=== PATIENT | male | born 1975 | race Caucasian/White ===

== ENCOUNTER 2024-09-16 00:34 | Day surgery (SDC) | payer BC, SELFPAY ==
[2024-09-10 13:40] VITALS: BMI 31.7
[2024-09-16 07:43] VITALS: BP 131/72; PULSE 78; RESP 16; TEMP 36.1; O2SAT 100; BMI 30.8
--- NOTE | 2024-09-16 08:12 | WPDANESEPPF ---
Anes - Initial Pre Proc Eval Procedure: Operation Date: 09/16/24 09:00 Proposed Procedures p Screening Colonoscopy - Cy Gupta MD Date/Time: 09/16/24 08:12 Surgeon: Cy Gupta MD Pre Op Diagnosis: Screening Patient Data Age: 49 Gender: M Height: 1.75 m Weight: 94.7 kg Last Vital Signs Temp 97 F L 09/16/24 07:43 Pulse 78 09/16/24 07:43 Resp 16 09/16/24 07:43 BP 131/72 09/16/24 07:43 Pulse Ox 100 09/16/24 07:43 O2 Del Method Room Air 09/16/24 07:43 Home Medications ?Medication ?Instructions ?Recorded ?Confirmed ?Type rosuvastatin 20 mg tablet 20 mg PO DAILY 09/10/24 09/16/24 History Patient hx anesthesia problems: none Family hx anesthesia problems: none Results Review: All pre-operative results and documents have been reviewed as part of the pre-operative evaluation. [facility] Social History Social History Smoking status: Never smoker Drinks per week: 2 Substance use type: does not use Living arrangements: with family Spiritual care concerns: No Anes - Eval Final PreProcedure Day of Procedure 09/16/24 08:12 Patient weight: obese Lungs: normal air movement Airway: Mallampati scale class II Neurological: alert and oriented Last oral intake: >/= 8 hours ASA classification: II Emergent: no Anesthetic plan: proceed Anesthesia type and monitoring: general GIVS and standard monitoring Results Review: All pre-operative results and documents have been reviewed as part of the pre-operative evaluation. Hyperlipidemia, EBONIE on CPAP. Informed Consent: The patient's anesthetic plan and its attendant risks and benefits were discussed with the patient/family/POA. Questions were solicited and answers provided to the satisfaction of the patient/family/POA.
[2024-09-16] MEDS: LACTATED RINGERS 1,000 ML 150 ML IV CONT (09:41)
--- NOTE | 2024-09-16 09:57 | PM.IMHP ---
H&P: HPI History of Present Illness Date/Time: 09/16/24 09:57 Chief Complaint: Screening colonoscopy Narrative: This is the patient's first colonoscopy. There are no GI symptoms and there is no family history of colorectal cancer. Review of Systems Review of Systems: All systems reviewed & are unremarkable except as noted in HPI and below [facility] Social History Social History Smoking status: Never smoker Drinks per week: 2 Substance use type: does not use Living arrangements: with family Spiritual care concerns: No Meds Home Medications and Allergies Home Medications ?Medication ?Instructions ?Recorded ?Confirmed ?Type rosuvastatin 20 mg tablet 20 mg PO DAILY 09/10/24 09/16/24 History Vital Signs Vital Signs - 24 hr 09/16/24 07:43 Temperature 97 F L Pulse Rate 78 Respiratory Rate 16 Blood Pressure 131/72 Pulse Oximetry 100 Oxygen Delivery Room Air Exam Const: General: cooperative and healthy appearing Resp: Effort & Inspection: normal respiratory effort and able to speak in complete sentences Auscultation: clear to auscultation bilaterally Cardio: Rate: regular rate Rhythm: regular rhythm GI: Inspection: normal to inspection GI Palp: No No hepatosplenomegaly present Auscultation: normal bowel sounds Rectal Exam: deferred Skin: General skin exam: normal color Psych: Appearance: grossly normal Mental Status: mental status grossly normal Assessment and Plan Assessment and plan (1) Encounter for screening colonoscopy: Code(s): Z12.11 - Encounter for screening for malignant neoplasm of colon Status: Acute Assessment and Plan: The patient is deemed a good candidate for the procedure. Consent signed. Will proceed.
[2024-09-16] MEDS: SIMETHICONE ORAL SUSPENSION 20 MG/0.3 ML 30 ML BOTTLE 0.6 ML IRRIGATION (10:21)
[2024-09-16 10:32] VITALS: BP 110/66; PULSE 66; RESP 19; O2SAT 98
[2024-09-16 10:42] VITALS: BP 117/72; PULSE 72; RESP 18; O2SAT 99
[2024-09-16 10:52] VITALS: BP 113/72; PULSE 57; RESP 20; O2SAT 100
== END 2024-09-16 11:06 | disposition home or self-care (01) ==
PROVIDERS: PCP Emergency Medicine; Referring Provider Emergency Medicine; Visit Provider Internal Medicine Gastroenterology
PROC: 0DJD8ZZ Inspection of Lower Intestinal Tract, Via Natural or Artificial Opening Endoscopic (ICD-10-PCS; CPT 45378; principal; 2024-09-16 09:00)
DX: Z12.11 Encounter for screening for malignant neoplasm of colon (principal)
CPT/HCPCS: 45378; J2003; J2704; J7120